=== PATIENT | male | born 1985 | race Caucasian/White ===

== ENCOUNTER 2016-11-18 01:15 | Emergency (ER) | payer SELFPAY ==
--- NOTE | ~2016-11-18 | CT4 ---
[facility] A Service of [facility] RADIOLOGY TEXT RESULTS PATIENT: ANA DUMAS LOCATION: SED : 85 UNIT #: [id number] AGE: [address]: Barrera Wu MD SEX: M ORDER DR: [id number] [place] [id number] E MR#: [id number] Acc #: [id number] NAME: ANA DUMAS : 1985 SEX: M STUDY DATE/TIME: 11/18/2016 3:38 UNIT: SED ROOM: STUDY DESCRIPTION: CT Abd and Pelv Wo Cont Attending Physician: Barrera Wu M.D. Ordering Physician: Barrera Wu M.D. Primary Care Physician: Primary Care Physician No MEDICAL IMAGING REPORT This report is preliminary unless electronic signature is present. EXAM CT of the abdomen and pelvis without contrast HISTORY Left flank pain, nausea, vomiting, dizziness, headache and chills since yesterday. COMPARISON None TECHNIQUE Axial 3.0 mm images were obtained through the abdomen and pelvis without IV or oral contrast. This CT exam was performed with one or more of the following radiation dose reduction techniques: automatic exposure control, adjustment of mA and/or kV according to patient size, and iterative reconstruction. FINDINGS The visualized lungs are clear. The liver, gallbladder, spleen, pancreas, adrenal glands and kidneys are normal. The aorta is normal in size and there is no adenopathy. The bowel, including the appendix, appears normal. The bladder and prostate gland are normal. The bones are unremarkable. IMPRESSION 1. Normal appendix. 2. No urinary stones are identified. 3. Normal study. Dictated by... [facility] A Service [facility] RADIOLOGY TEXT RESULTS PATIENT: ANA DUMAS LOCATION: SED : 85 UNIT #: [id number] AGE: [address]: Barrera Wu MD SEX: M ORDER DR: Ventura Grover M.D. THIS IS AN ELECTRONICALLY VERIFIED REPORT Ventura Grover M.D. at 11/18/2016 1:32 PM Fidencio TD: 11/18/2016 09:15 JOB #: [id number] MEDICAL IMAGING REPORT Page 1 of 1
[~2016-11-18 01:15] MED LIST: BACITRACIN30 GM TOP; BENADRYL25 M3 PO; BLEPH-105 M1 OP; CIPRO PO; DIAZEPAM PO; EC-NAPROSYN500 MG PO; FLEXERIL PO; FLEXERIL10 M1 PO; FLEXERIL10 MG PO; IBUPROFEN800 MG PO; NAPROXEN PO; NO MEDICATIONS; PERCOCET5/325 PO; PREDNISONE PO; ULTRAM PO; VOLTAREN50 MG PO; VOLTAREN75 MG PO; ZOFRAN ODT4 MG SL; ZOFRANODT PO
[2016-11-18] MEDS ORDERED: FLEXERIL10 MG PO (01:25)
[2016-11-18] MEDS ORDERED: ZIPSOR25 MG PO (01:26)
[2016-11-18 03:13] LABS: BASOPHIL% 0.3 % (0-2.5); EOSINOPHIL% 0.2 % (0.0-7.0); HEMATOCRIT 43.9 % (38.0-50.0); HEMOGLOBIN 15.4 gm/dL (13.0-16.0); LYMPHOCYTE# 0.5 X10e3 (1.0-3.5); LYMPHOCYTE% 4.6 % (17.0-45.0); MEAN CELL VOLUME 87.9 FL (83-96); MEAN CORPUSCULAR HEMOGLOBIN 30.8 PG (28-34); MEAN PLATELET VOLUME 9.4 FL (6.5-11.5); MONOCYTE# 0.7 X10e3 (0-1.0); MONOCYTE% 6.5 % (3.0-12.0); NEUTROPHIL# 9.7 X10e3 (1.5-7.1); NEUTROPHIL% 88.4 % (40-75); PLATELET COUNT 171 X10e3 (140-420); RED BLOOD COUNT 4.99 X10e (3.90-5.60); RED CELL DISTRIBUTION WIDTH 13.6 % (11.0-15.5)
[2016-11-18 03:18] LABS: DIFF IND NO
[2016-11-18 03:31] LABS: ALBUMIN SERUM 4.1 g/dL (3.5-5.0); BILIRUBIN, DIRECT 0.2 mg/dL (0.0-0.2); BILIRUBIN,INDIRECT 0.4 mg/dL (0.0-0.9); BILIRUBIN,TOTAL 0.6 mg/dL (0.2-2.0); BUN/CREATININE RATIO 15.55; CALCIUM SERUM 8.5 mg/dL (8.4-10.2); CREATININE SERUM 0.9 mg/dL (0.6-1.4); GLOM FILT RATE Estimated 114.2 mL/min (>60); POTASSIUM 3.6 mmol/L (3.5-5.1); PROTEIN TOTAL SERUM 7.2 g/dL (6.0-8.3)
[2016-11-18 03:43] LABS: URINE SOURCE CLEAN CATCH
[2016-11-18 03:46] LABS: URINE APPEARANCE CLEAR; URINE BILIRUBIN NEG (NEG); URINE BLOOD NEG (NEG); URINE COLOR YELLOW; URINE GLUCOSE NEG (NORM); URINE KETONE NEG (NEG); URINE LEUKOCYTE ESTERASE NEG (NEG); URINE NITRATE NEG (NEG); URINE PH 5.5 (5-8); URINE PROTEIN NEG (NEG); URINE SPECIFIC GRAVITY 1.025 (1.003-1.035); URINE UROBILINOGEN 0.2 MG/DL (NORM)
[2016-11-18 03:47] LABS: MICRO INDICATED? NO
== END 2016-11-18 04:50 | disposition home or self-care (01) ==
LOC: SED 01:15
PROVIDERS: Emergency Medicine
DX: K52.9 Noninfective gastroenteritis and colitis, unspecified (principal); M54.9 Dorsalgia, unspecified; R51 Headache; R42 Dizziness and giddiness; Z79.899 Other long term (current) drug therapy; Z88.0 Allergy status to penicillin
CPT/HCPCS: 36415; 74176; 80048; 80076; 81003; 83605; 85025; 87040; 96374; 96375; 99284; J1885; J2405